=== PATIENT | male | born 1965 | race Caucasian/White ===

== ENCOUNTER 2016-10-03 06:00 | Day surgery (SDC) | payer OTHER ==
[~2016-10-03] VITALS: Ht 165.1 cm; Wt 154.5 kg
[~2016-10-03 06:00] MED LIST: AMLODIPINE BESYL5 MG PO; ATORVASTATIN CA20 MG PO; DIOVAN HCT 11 TABLET PO; FLONASE16 G1 BOTH NARES; HYDROXYZINE HCL25 MG PO; LEVOTHYROXINE75 MCG PO; LIDODERM 5% P1 PATCH TD; NEXIUM40 MG PO; ZYRTEC10 M3 PO
[2016-10-03 07:21] LABS: INTER. NORMALIZED RATIO 1.1; PROTHROMBIN TIME 11.9 SEC (10.2-12.9)
[2016-10-03 07:24] LABS: PTT 30.7 SEC (25-37)
[2016-10-03 07:50] VITALS: BP 140/85
[2016-10-03 10:11] VITALS: BP 134/87
== END 2016-10-03 10:40 | disposition home or self-care (01) ==
LOC: SDC 06:00
PROVIDERS: Urology
PROC: 0TJB8ZZ Inspection of Bladder, Via Natural or Artificial Opening Endoscopic (ICD-10-PCS; principal; 2016-10-03)
DX: R31.0 Gross hematuria (principal); N35.9 Urethral stricture, unspecified; R94.4 Abnormal results of kidney function studies; Z87.442 Personal history of urinary calculi; Z87.440 Personal history of urinary (tract) infections; E66.01 Morbid (severe) obesity due to excess calories; Z68.43 Body mass index [BMI] 50.0-59.9, adult; G40.909 Epilepsy, unspecified, not intractable, without status epilepticus; K21.9 Gastro-esophageal reflux disease without esophagitis; E03.9 Hypothyroidism, unspecified; E78.5 Hyperlipidemia, unspecified; Z88.0 Allergy status to penicillin; Z88.8 Allergy status to other drugs, medicaments and biological substances
CPT/HCPCS: 85049; 85610; 85730; 88108; C1758; C1769; J0330; J0690; J1100; J1580; J2250; J2405; J3010